=== PATIENT | female | born 1945 | race Two or more races ===

== ENCOUNTER 2016-06-08 14:05 | Emergency (ER) | payer MEDICARE, MEDICAID ==
[~2016-06-08] VITALS: Ht 144.8 cm; Wt 59.0 kg
[~2016-06-08 14:05] MED LIST: AMAN100C16 PO; CARB1TAB14 PO; CARB1TAB40 PO; ERGO400T7 PO; LOSA100T15 PO; MAGN200T4 PO; OMEP20CA10 PO; PREG150C PO; QUET25TA PO; TRIH2TAB3 PO
[2016-06-08] MEDS ORDERED: ONDANSETRON HCL/PF 4 MG/2 ML VIAL ONE (15:23)
[2016-06-08] MEDS ORDERED: IV NS 0.9% 1,000 ML ONE (15:23)
[2016-06-08] MEDS ORDERED: MORPHINE SULFATE INJ 4 MG/ML DISP.SYRIN ONE (15:23)
[2016-06-08] MEDS ORDERED: MORPHINE SULFATE INJ 2 MG/ML DISP.SYRIN IV ONE (15:30)
[2016-06-08] MEDS ORDERED: IV NS 0.9% 1,000 ML BAG IV ONE (15:30)
[2016-06-08] MEDS ORDERED: ONDANSETRON HCL/PF 4 MG/2 ML VIAL IVP ONE (15:30)
[2016-06-08 15:37] LABS: BASOPHILS % (AUTO) 0.5 % (0.0-2.0); DIFF TOTAL % 100 %; EOSINOPHILS % (AUTO) 0.5 % (0.0-6.0); HEMATOCRIT 39 % (33-45); HEMOGLOBIN 12.9 g/dL (11.5-14.8); LYMPHOCYTES # (AUTO) 0.9 /CMM (0.8-4.8); LYMPHOCYTES % (AUTO) 11.4 % (20.0-44.0); MEAN CORPUSCULAR HEMOGLOBIN 29 PG (26.0-33.0); MEAN CORPUSCULAR HGB CONC 33 g/dl (31.0-36.0); MEAN CORPUSCULAR VOLUME 85 fL (82-100); MONOCYTES # (AUTO) 0.2 /CMM (0.1-1.30); MONOCYTES % (AUTO) 3.2 % (2.0-12.0); NEUTROPHILS # (AUTO) 6.5 /CMM (1.8-8.9); NEUTROPHILS % (AUTO) 84.4 % (43.0-81.0); PLATELET COUNT (AUTO) 191 /CMM (150-450); RED BLOOD CELL COUNT(AUTO) 4.53 MIL/uL (4.0-5.2); WHITE BLOOD COUNT (AUTO) 7.7 K/uL (4.3-11.0)
[2016-06-08 15:57] LABS: ANION GAP 14 (5-14); CARBON DIOXIDE 28 mmol/L (21-32); CHLORIDE 106 mmol/L (98-107); CREATININE 0.9 mg/dL (0.6-1.3); GLUCOSE 139 mg/dL (74-106); POTASSIUM 4.5 mmol/L (3.5-5.1); SODIUM SERUM 143 mmol/L (136-145); UREA NITROGEN, BLOOD 15 mg/dL (7-18)
[2016-06-08 15:59] LABS: INR 0.98 (0.87-1.13); PROTHROMBIN TIME 10.3 SECS (9.5-12.7)
[2016-06-08 16:03] LABS: TROPONIN I < 0.017 ng/mL (0.00-0.056)
[2016-06-08 16:04] LABS: ALANINE AMINOTRANSFERASE 8 U/L (12-78); ALBUMIN 3.6 g/dL (3.4-5.0); ASPARTATE AMINOTRANSFERASE 20 U/L (15-37); BILIRUBIN,DIRECT 0.1 mg/dL (0.0-0.2); BILIRUBIN,TOTAL 0.5 mg/dL (0.2-1.0); INDIRECT BILIRUBIN 0.4 mg/dL (0.0-1.1); TOTAL PROTEIN, SERUM 7.2 g/dL (6.4-8.2)
[2016-06-08 16:49] LABS: KETONES,URINE NEGATIVE (NEGATIVE); LEUKOCYTE ESTERASE ,URINE 1+ (NEGATIVE); PH,URINE 7.5 (5.0-8.0)
[2016-06-08 16:59] LABS: ADD UA MICROSCOPIC YES
[2016-06-08 17:08] LABS: ADD URINE CULTURE YES; RBC,URINE 0-2 /HPF (0-2)
[2016-06-08 18:31] VITALS: BP 135/70
== END 2016-06-08 18:37 | disposition home or self-care (01) ==
LOC: ER 15:11
DX: S16.1XXA Strain of muscle, fascia and tendon at neck level, initial encounter (principal); S00.03XA Contusion of scalp, initial encounter; R10.13 Epigastric pain; G20 Parkinson's disease; R42 Dizziness and giddiness; K21.9 Gastro-esophageal reflux disease without esophagitis; R91.1 Solitary pulmonary nodule; I10 Essential (primary) hypertension; R51 Headache; Z86.73 Personal history of transient ischemic attack (TIA), and cerebral infarction without residual deficits; Z90.49 Acquired absence of other specified parts of digestive tract; W01.198A Fall on same level from slipping, tripping and stumbling with subsequent striking against other object, initial encounter; Y93.89 Activity, other specified; Y92.091 Bathroom in other non-institutional residence as the place of occurrence of the external cause; Y99.8 Other external cause status
CPT/HCPCS: 36415; 70450; 71010; 72070; 72125; 80048; 80076; 81001; 84484; 85025; 85730; 87077; 87086; 87186; 93005; 96361; 96374; 96375; 99285; A4606; J2270; J2405; J7030; 81000-TC; Z7610